=== PATIENT | male | born 2000 | race American Indian/Alaskan Native ===

== ENCOUNTER 2024-10-28 12:30 | Inpatient (IN) | payer OTHER, SELFPAY ==
[2024-10-28 12:34] VITALS: BP 149/87; PULSE 105; RESP 18; TEMP 36.7; O2SAT 97; BMI 31.0
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
--- OUTSIDE RECORDS SUMMARY | 2024-10-28 12:46 | XMS_ITS | Continuity of Care Document ---
Author Organization [facility] Address [address] [address] [place] [address] Phone Care Team Providers Care Refining Engineer Name Role Phone Lottie Rojas DO Unavailable Unavailable Allergies, Adverse Reactions, Alerts Substance Reaction Status Criticality No Known Allergies Active No Inform ation Medications Medication Instructions Dosage Effective Dates (start - stop) Status Comments ketoconazole 2 % topical cream apply by topical route 2 times every day to the affected area(s) for 3 weeks - Active Procedures Procedure Date Offic/outpt Radha Mccarthy Mikhail S Admin Of Influenza Vaccine Flu Vir Vacc-split 3 Yr Preven Meds E m Estab Pt 5-11 Yrs Of Age Preven Meds E m Estab Pt 5-11 Yrs Of Age Routine Venipunct/finger/ N/C Labs Done Init Preven Meds E m New Advance Directives Directive Yes / No Effective Date File Name No Information Encounters Encounter Description Practice Location Reason(s) For Visit Diagnoses Date Provider Providers Copied on Encounter Offic/outpt E isaura Mccarthy Mod S [facility], [address] [address], [place], [place], [id number], tel:[phone] Lesion(s) (chief complaint) Yeast dermatitisBoil 0-201 9 Bob Tafoya. [address] [facility], [place], [place], [id number] , [place]. tel: [phone] [facility], [address] [address], [place], [place], [address], [place] tel:[phone] [facility] No Information 3200 9 Flora Hawkins. [address], [place], [place], [id number] , [place]. tel: [phone] Referring Provider: Ross Hines, [address], [place], [address] . tel:[phone] Preven Meds E m Estab Pt 5-11 Yrs Of Age [facility], [address] [address], [place], [place], [address], [place] tel:[phone] [facility] well child exam (chief complaint) No Information 9 Flora Hawkins. [address], [place], [place], [id number] , [place]. tel: [phone] Referring Provider: Ross Hines, [address], [place], [address] . tel:[phone] [facility], [address] [address], [place], [place], [id number], [place] tel:[phone] [facility] No Information 9 Ankur Jarrett. [address], [place], [place], [id number] , [place]. tel: [phone] Preven Meds E m Estab Pt 5-11 Yrs Of Age [facility], [address] [address], [place], [place], [id number], [place] tel:[phone] [facility] establish care (chief complaint) No Information 4-200 8 Flora Hawkins. [address], [place], [place], [id number] , [place]. tel: [phone] Referring Provider: Ross Hines, [address], [place], [address] . tel:[phone] [facility], [facility], [address] [address], [place], [place], [address], [place] tel:[phone] [facility] No Information 8 Carlos Posey. [address] [place], [place], [address] , [place]. tel:[phone] Referring Provider: Taty Gonzalez, [place], [address] . tel:[phone] Init Preven Meds E m [facility], [facility], [address] [address], [place], [place], [address], [place] tel:[phone] [facility] Pediatrics physical exam (chief complaint) No Information 8 Carlos Posey. [address] [place], [place], [id number] , [place]. tel:[phone] Referring Provider: Taty Gonzalez, [place], [address] . tel:[phone] Family History Family Member Type Diagnosis Age At Onset Father Problem (finding) Hepatitis C (treated) Immunizations Vaccine Date Status Comments polio, inactivated (IPV) administered Linda rce: New Immunization Record MMR administered Source: New Imm unization Record DTaP administered Source: New Imm unization Record hep A (ped/adol, 3 dose) administered Linda rce: New Immunization Record hep A (ped/adol, 3 dose) administered Linda rce: New Immunization Record polio, inactivated (IPV) administered Linda rce: New Immunization Record varicella administered Source: New Imm unization Record HIB - unspecified administered Note: Set procedure code where blank for historical non-specific HIB entry. ; Source: New Immunization Record DTaP administered Source: New Imm unization Record hep A (ped/adol, 3 dose) administered Linda rce: New Immunization Record pneumo (under 5) (PCV7) administered Sour ce: New Immunization Record MMR administered Source: New Imm unization Record HIB - unspecified administered Note: Set procedure code where blank for historical non-specific HIB entry. ; Source: New Immunization Record pneumo (under 5) (PCV7) administered Sour ce: New Immunization Record varicella administered Source: New Imm unization Record hep B (ped/adol, 3 dose) administered Linda rce: New Immunization Record DTaP administered Source: New Imm unization Record polio, inactivated (IPV) administered Linda rce: New Immunization Record HIB - unspecified administered Note: Set procedure code where blank for historical non-specific HIB entry. ; Source: New Immunization Record DTaP administered Source: New Imm unization Record pneumo (under 5) (PCV7) administered Sour ce: New Immunization Record hep B (ped/adol, 3 dose) administered Linda rce: New Immunization Record hep B (ped/adol, 3 dose) administered Linad rce: New Immunization Record Payers Payer name Insurance type Covered libertarian ID Authorsantosha ticynthia(s) [facility] [id number] Social History Type Description Quantity Date Captured Comments Alcohol Use Details Unknown Caffeine Use Details Unknown Tobacco Use Status Current non-smoker 19 Smoking Status Never smoker Non-Smoking Tobacco Use Details : No Details Available : No Details Available Sex Male Vital Signs Date / Time: Height Weight BMI Pulse Rate Blood Pressure Temperature Respiratory Rate Body Surface Area Head Circumference Head Circ. Percentile Wt./Ronal. Percentile BMI percentile Pulse Ox Inhaled Ox 6:00 PM 72.24 in 112.854 kg (248.80 lbs) 33.5 2 kg/m eter (2) 73 /min 127/79 mm[Hg] 98.30 F 16 /min 98 97 % 21 % Chief Complaint And Reason For Visit From encounter dated '12/01/2018 17:50'. Lesion(s) (chief complaint). Description: The symptoms began 1 day ago and generally lasts 1 Day. The symptoms are reported as being moderate. The symptoms occur constantly. The location is groin. Hestates the symptoms are acute and have worsened. Reason For Referral Reason For Referral No Information Plan Of Treatment Date Type Action Status Goal Influenza vaccine. Due on due Goal HPV (1st). Due on 9 due Goal PPV 23 due Goal Fluoride varnish application . Due on due Goal Depression screening. Due on due Goal HPV (1st). Due on 9 due Goal Tdap. Due on due Goal Td vaccine. Due on 19 due Goal H&P. Due on due Goal H&P. Due on due History Of Present Illness Encounter Date Complaint History Of Prese nt Illness Lesion(s) The symptoms beg an 1 day ago and generally lasts 1 Day. The symptoms are reported as being moderate. The symptoms occur constantly. The location is groin. He states the symptoms are acute and have worsened. Lesion(s) (comments) 18yo M c/o bump on the inside of the left thigh. Pt says he noticed it today. Pt says there is some pain associated. Pt says he cannot remember if the bump is red, but he believes so. tender no head Functional Status Date Functional Assessmen t No Information Instructions Date Instruction Additional Infor johanna 1- try over the coun ter Campho-Phenique once a day to the bump2- if the bump comes to a head come back and we can cesar it. Related to Boil Ketoconazole 1-2 jaquelin es a day for 3 weeks when you can try to keep area dry. Related to Yeast dermatitis Assessments Type Assessment Date assessment Yeast dermatitis assessment Boil Mental Status Date Cognitive Assessment Orientation - [place] ed to time, place, person, situation.Normal Orientation Patient Care Teams Name Effective Dates (start - stop) Status Members No Information
--- OUTSIDE RECORDS SUMMARY | 2024-10-28 12:46 | XMS_ITS | Clinical Summary ---
Author Organization [facility] Address [address] [place] [address] Care Team Providers Care Clam Treader Name Role Phone Pcp, No Unavailable Unavailable Allergies No known active allergies Medications No known medications Social History Tobacco Use Types Packs/Day Years Used Date Smoking Tobacco: Never Assessed Sex and Gender Information Value Date Recorded Sex Assigned at Not on file Legal Sex Male 1:34 AM EDT Gender Identity Not on file Sexual Orientation Not on file Last Filed Vital Signs Vital Sign Reading Time Taken Comments Blood Pressure 150/100 08/26/2023 10:55 AM EDT Pulse 85 08/26/2023 10:55 AM EDT Temperature 36.7 ??C (98.1 ??F) 08/26/2023 10:55 AM E DT Respiratory Rate 18 08/26/2023 10:55 AM EDT Oxygen Saturation 100% 08/26/2023 10:55 AM EDT Inhaled Oxygen Concentration 100% 08/26/2023 1 0:55 AM EDT Weight - - Height - - Body Mass Index - - Plan of Treatment Health Maintenance Due Date Last Done Comments Depression Screening 2011 HIV Screening with Documented Verbal Consent 2014 Hepatitis C Screening 2017 COVID-19 Vaccine ( season) 2024 04/10/2021 Influenza Vaccine (#1) 2024 05/27/2015 TDAP/TD Vaccine 18+ 11/09/2024 11/09/2014 Hepatitis B Vaccines Completed 05/17/2000, 1999, 1999 HPV Vaccines Completed 05/27/2015, 01/07/2015, 11/09/2014 Pneumococcal: Peds (0-5y) OR At-Risk Patient (6-49y) Aged Out No longer eligib le based on patient's age to complete this topic Insurance [employer] Care Teams Clam Treader Relationship Specialty Start Date End Date Pcp, No PCP - Generic [facility] PCP 08/26/23
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
[2024-10-28 12:54] LABS: MANUAL DIFF FLAG NO
[2024-10-28 12:56] LABS: Basophils Absolute Auto 0.1 X10*3/uL (0.0-0.2); Basophils Percent Auto 0.7 % (0-2); Eosinophils Absolute Auto 0.3 X10*3/uL (0.0-0.4); Eosinophils Percent Auto 2.1 % (0-4); Hemoglobin 15.4 g/dl (14.0-18.0); Imm Gran Abs Auto 0.16 X10*3/uL (0.00-0.03); Imm Gran Pct Auto 1.3 % (0.0-0.4); Lymphocytes Absolute Auto 1.8 X10*3/uL (1.2-4.9); Lymphocytes Percent Auto 15.2 % (20-40); Mean Corpuscular HGB Conc 34.2 g/dl (31.0-36.0); Mean Corpuscular Hemoglobin 29.2 pg (27.0-33.0); Mean Corpuscular Volume 85.4 fL (80.0-98.0); Mean Platelet Volume 11.6 fL (9.4-12.4); Monocytes Absolute Auto 0.7 X10*3/uL (0.1-1.2); Monocytes Percent Auto 6.2 % (2-11); Neutrophils Percent Auto 74.5 % (45-73); Platelet Count 191 X10*3/uL (160-400); Red Blood Count 5.27 X10*6/uL (4.60-5.80); Red Cell Distribution Width 12.9 % (11.0-16.0)
[2024-10-28 13:10] LABS: Acetaminophen LAB < 3 mcg/mL (<30); Alanine Aminotransferase 60 U/L (0-40); Albumin Level 4.7 g/dL (3.5-5.0); Alkaline Phosphatase 75 U/L (39-117); Anion Gap 14 (12-20); Aspartate Amino Transferase 31 U/L (5-37); Bilirubin Direct 0.1 mg/dL (0.0-0.5); Bilirubin Total 0.3 mg/dL (0.0-1.0); Blood Urea Nitrogen 11 mg/dL (9-16); Calcium 9.8 mg/dL (8.4-10.2); Carbon Dioxide 24 mmol/L (22-29); Chloride 108 mmol/L (96-108); Estimated Glomerular Filt Rate > 60; Ethanol < 10 mg/dL; Glucose Random 102 mg/dL (60-115); Potassium 4.4 mmol/L (3.3-5.1); Salicylate < 5.0 mg/dL (15-30); Sodium 142 mmol/L (135-145); Total Protein 7.8 g/dL (6.5-8.0)
[2024-10-28 13:24] LABS: Appearance Urine Clear; Color Urine Yellow; Glucose Urine UA Negative (Negative); Leukocyte Esterase Urine Negative (Negative); Nitrite Urine Negative (Negative); Urine Blood Negative (Negative); Urine Ketones Negative (Negative); Urine Protein Negative (Neg-Trace)
[2024-10-28 13:35] LABS: Amphetamine Screen Urine Not Detected (Not Detect); Barbiturates, Urine Not Detected (Not Detect); Benzodiazepines Screen Urine Not Detected (Not Detect); Buprenorphine Scr Not Detected (Not Detect); Cannabinoid Screen Urine Not Detected (Not Detect); Cocaine Screen Urine Not Detected (Not Detect); Fentanyl, urine Not Detected (Not Detect); Methadone Screen, Urine Not Detected (Not Detect); Opiate Screen Urine Not Detected (Not Detect); Oxycodone Screen Urine Not Detected (Not Detect); Phencyclidine Screen Urine Not Detected (Not Detect)
[2024-10-28 14:05] VITALS: RESP 16
--- NOTE | 2024-10-28 17:45 | PC.NURSE ---
Patient on phone calling his manuela Levi agitated that disposition at this time is S[facility]. patient is able to self-redirect without issue
--- NOTE | 2024-10-28 18:05 | PC.NURSE ---
Patient reports that he receives his medications at [facility] in [place], [place]. Pharmacy opens at 0900 on 10/29. Unable to fully verify medications at this time however, patient was able to verify medications that he is taking, additional verification was obtained by the medical team at [facility] where the patient is currently under medical obs
[2024-10-28] MEDS: Nicotine 21 MG PATCH.TD24 TRANSDERMA (18:21)
[2024-10-28] MEDS: Nicotine Polacrilex 2 MG GUM BUCCAL (20:00)
[2024-10-28] MEDS: Naltrexone HCl 50 MG TABLET PO (20:00)
[2024-10-28] MEDS: hydrOXYzine HCL 50 MG TABLET PO (20:00)
[2024-10-28] MEDS: Magnesium Oxide 400 MG TABLET 200 MG PO (20:00)
[2024-10-28] MEDS: busPIRone HCl 5 MG TABLET 15 MG PO (20:00)
[2024-10-28] MEDS: traZODone HCL 100 MG TABLET PO (20:01)
--- NOTE | 2024-10-28 20:12 | PC.NURSE ---
Mark Moser (Medical Personnel at [facility]) called for update, pt agreeable to giving information to him. [phone]
[2024-10-28 20:50] VITALS: BP 129/74; PULSE 85; RESP 16; TEMP 36.6; O2SAT 98
--- NOTE | 2024-10-28 20:50 | PC.NURSE ---
Patient took pm medications, now resting in no apparent distress at this time, respirations even and unlabored
--- NOTE | 2024-10-29 05:56 | PC.NURSE ---
Patient slept through the night, no distress observed/reported, meds and meals compliant, disposition per care team is section-12 inpatient bed search, 15 minutes safety check, no behavior and safety concerns, will continue to monitor
[2024-10-29 06:04] VITALS: BP 100/52; PULSE 62; RESP 18; TEMP 36.4; O2SAT 96
--- NOTE | 2024-10-29 09:24 | PHA.MEDREC ---
Addendum entered by Maddy Winslow RPh 10/29/24 18:29: Reviewed by [facility] Original Note: Pharmacy Consult ? Medication Reconciliation Pharmacy has completed the medication reconciliation Reviewed med rec done by nursing (Izzy)..
--- NOTE | 2024-10-29 09:34 | PC.NURSE ---
Assumed care of patient at 0845, patient appears to be sleeping at this time, respirations even and unlabored, no apparent distress noted. Continue plan of care for IPLOC
[2024-10-29] MEDS: Thiamine HCL 100 MG TABLET PO (09:50)
[2024-10-29] MEDS: Folic Acid 1 MG TABLET PO (09:50)
[2024-10-29] MEDS: Naltrexone HCl 50 MG TABLET PO ×2 (09:51→21:40)
[2024-10-29] MEDS: busPIRone HCl 5 MG TABLET 15 MG PO ×2 (09:51→21:38)
[2024-10-29] MEDS: Nicotine Polacrilex 2 MG GUM BUCCAL ×3 (09:53→21:41)
--- NOTE | 2024-10-29 09:54 | PC.NURSE ---
pharmacy yue texted for Abilify at [phone]
[2024-10-29] MEDS: ARIPiprazole 20 MG TABLET PO (10:06)
[2024-10-29] MEDS: buPROPion HCl XL 150 MG TAB.ER.24H PO (11:44)
[2024-10-29] MEDS: Nicotine 21 MG PATCH.TD24 TRANSDERMA (16:59)
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
[2024-10-29 20:42] VITALS: BP 136/69; PULSE 81; RESP 18; TEMP 36.7; O2SAT 95
[2024-10-29] MEDS: hydrOXYzine HCL 50 MG TABLET PO (21:38)
[2024-10-29] MEDS: Magnesium Oxide 400 MG TABLET 200 MG PO (21:39)
[2024-10-29] MEDS: traZODone HCL 100 MG TABLET PO (21:40)
[2024-10-29 22:40] VITALS: RESP 14
[2024-10-30 06:20] VITALS: BP 114/63; PULSE 57; RESP 17; TEMP 36.8; O2SAT 98
--- NOTE | 2024-10-30 08:24 | ECG_ITS ---
Test Reason : CHECK CARDIAC STATUS Blood Pressure : */* mmHG Vent. Rate : 84 BPM Atrial Rate : 84 BPM P-R Int : 144 ms QRS Dur : 92 ms QT Int : 376 ms P-R-T Axes : 51 53 12 degrees QTcB Int : 444 ms Normal sinus rhythm Normal ECG No previous ECGs available Referred By: Generic ED Physician Electronically Signed By: Ernie Young
--- NOTE | 2024-10-30 08:46 | PC.NURSE ---
pt is calm and cooperative, he is interacting approprialty with staff and is speaking in clear and even tones. bed search is ongoing, pt os aware and agreeable to plan of care.
[2024-10-30] MEDS: busPIRone HCl 5 MG TABLET 15 MG PO ×2 (09:19→22:04)
[2024-10-30] MEDS: Thiamine HCL 100 MG TABLET PO (09:19)
[2024-10-30] MEDS: Naltrexone HCl 50 MG TABLET PO ×2 (09:19→22:04)
[2024-10-30] MEDS: buPROPion HCl XL 150 MG TAB.ER.24H PO (09:19)
[2024-10-30] MEDS: Folic Acid 1 MG TABLET PO (09:19)
--- NOTE | 2024-10-30 10:51 | MHC.EDTECH ---
Patient presents to nurses desk to ask about discharging, this tech stated I would check into the status. This tech spoke with care team via [place] and relayed to patient that patient is unable to discharge, they are on a section 12. Patient became upset, raising voice, stating they are not staying any longer, and requesting to speak with care team. Care team contacted and patients requests given via [place] text.
[2024-10-30 11:51] VITALS: BP 122/68; PULSE 68; RESP 16; TEMP 36.9; O2SAT 97
[2024-10-30] MEDS: Nicotine 21 MG PATCH.TD24 TRANSDERMA (19:31)
--- NOTE | 2024-10-30 21:07 | PC.NURSE ---
patient appears to remain at rest at present, respirations even and unlabored patient requested nicotine patch soon after arrival patient appears in no distress presently. client spoke ti sister on phone [id number] disposition.
[2024-10-30] MEDS: Magnesium Oxide 400 MG TABLET 200 MG PO (22:04)
[2024-10-30] MEDS: traZODone HCL 100 MG TABLET PO (22:05)
[2024-10-31 06:24] VITALS: BP 132/60; PULSE 61; RESP 14; TEMP 36.2; O2SAT 98
--- NOTE | 2024-10-31 07:57 | PC.NURSE ---
Pt Sister Cady called for update on pt. This RN explained to pt sister, pt is sleeping and requires verbal consent to give information over the phone. Will obtain when patient awake. Cady [phone]
[2024-10-31] MEDS: Folic Acid 1 MG TABLET PO (09:18)
[2024-10-31] MEDS: Thiamine HCL 100 MG TABLET PO (09:18)
[2024-10-31] MEDS: buPROPion HCl XL 150 MG TAB.ER.24H PO (09:18)
[2024-10-31] MEDS: busPIRone HCl 5 MG TABLET 15 MG PO ×2 (09:19→20:19)
[2024-10-31] MEDS: Naltrexone HCl 50 MG TABLET PO ×2 (09:19→20:19)
[2024-10-31] MEDS: ARIPiprazole 20 MG TABLET PO (11:35)
[2024-10-31 15:37] VITALS: BP 111/52; PULSE 83; RESP 12; TEMP 36.3; O2SAT 99
[2024-10-31 16:15] VITALS: BP 133/80; PULSE 97; TEMP 36; O2SAT 96
[2024-10-31] MEDS: Nicotine 21 MG PATCH.TD24 TRANSDERMA (17:16)
[2024-10-31 17:30] VITALS: BMI 44.7
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
[2024-10-31 20:00] VITALS: BP 129/60; PULSE 76; TEMP 36.6; O2SAT 94
[2024-10-31] MEDS: Magnesium Oxide 400 MG TABLET 200 MG PO (20:19)
[2024-10-31] MEDS: traZODone HCL 100 MG TABLET PO (20:19)
[2024-10-31] MEDS: Acetaminophen 325 MG TABLET 650 MG PO (21:38)
[2024-11-01 00:10] VITALS: BP 115/55; PULSE 58; RESP 16; TEMP 36.5; O2SAT 94
[2024-11-01 07:54] VITALS: BP 130/62; PULSE 63; TEMP 36.4; O2SAT 96
[2024-11-01] MEDS: busPIRone HCl 5 MG TABLET 15 MG PO ×2 (08:58→22:56)
[2024-11-01] MEDS: Thiamine HCL 100 MG TABLET PO (08:59)
[2024-11-01] MEDS: ARIPiprazole 20 MG TABLET PO (08:59)
[2024-11-01] MEDS: Folic Acid 1 MG TABLET PO (08:59)
[2024-11-01] MEDS: Naltrexone HCl 50 MG TABLET PO ×2 (08:59→22:58)
[2024-11-01] MEDS: Multivitamin TABLET 1 TAB PO (08:59)
[2024-11-01] MEDS: buPROPion HCl XL 150 MG TAB.ER.24H PO (08:59)
[2024-11-01] MEDS: Nicotine Polacrilex 2 MG GUM 4 MG BUCCAL (08:59)
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
[2024-11-01] MEDS: Acetaminophen 325 MG TABLET 650 MG PO (11:06)
[2024-11-01] MEDS: Nicotine 21 MG PATCH.TD24 TRANSDERMA (11:06)
[2024-11-01 12:34] VITALS: BP 119/60; PULSE 75; TEMP 36.5
[2024-11-01] MEDS: LORazepam 1 MG TABLET PO (12:45)
[2024-11-01] MEDS: Sertraline HCL 100 MG TABLET PO (12:45)
[2024-11-01 19:36] VITALS: BP 128/66; PULSE 87; RESP 16; TEMP 36.4; O2SAT 97
[2024-11-01] MEDS: Magnesium Oxide 400 MG TABLET 200 MG PO (22:55)
[2024-11-01] MEDS: traZODone HCL 100 MG TABLET PO (22:58)
[2024-11-02 07:00] VITALS: BMI 44.8
[2024-11-02 08:00] VITALS: BP 167/77; PULSE 65; TEMP 37.1
[2024-11-02 08:35] LABS: Cholesterol 256 mg/dL (<200); HDL Cholesterol 49 mg/dL (>40); LDL Cholesterol Calculated 177 mg/dL (<100); Magnesium 2.3 mg/dL (1.6-2.6); Triglycerides 154 mg/dL (<150)
[2024-11-02] MEDS: Sertraline HCL 100 MG TABLET PO (08:43)
[2024-11-02] MEDS: Naltrexone HCl 50 MG TABLET PO ×2 (08:43→21:28)
[2024-11-02] MEDS: ARIPiprazole 20 MG TABLET PO (08:43)
[2024-11-02] MEDS: Folic Acid 1 MG TABLET PO (08:43)
[2024-11-02] MEDS: Thiamine HCL 100 MG TABLET PO (08:43)
[2024-11-02 08:44] LABS: Estimated Average Glucose 108 mg/dL; Hemoglobin A1C 143.4882 umol/L; Hemoglobin A1c % 5.4 % (<6.0); Total Hemoglobin (HGBA1C) 4036.8778 umol/L
[2024-11-02] MEDS: Nicotine 21 MG PATCH.TD24 TRANSDERMA (08:44)
[2024-11-02] MEDS: LORazepam 1 MG TABLET PO (08:44)
[2024-11-02] MEDS: Multivitamin TABLET 1 TAB PO (08:44)
[2024-11-02] MEDS: busPIRone HCl 5 MG TABLET 15 MG PO ×2 (08:44→21:27)
[2024-11-02] MEDS: buPROPion HCl XL 150 MG TAB.ER.24H PO (08:44)
[2024-11-02 08:54] LABS: Free T4 (Free Thyroxine) 0.85 ng/dL (0.71-1.85); Thyroid Stimulating Hormone 1.43 uIU/mL (0.32-4.0)
[2024-11-02 09:05] LABS: Folate 13.3 ng/mL (> or = 4.0); Vitamin B12 1443 pg/mL (200-900)
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
[2024-11-02 12:00] VITALS: BP 120/65; PULSE 78; TEMP 36.6; O2SAT 96
[2024-11-02] MEDS: Acetaminophen 325 MG TABLET 650 MG PO (18:37)
[2024-11-02 19:00] VITALS: BP 126/80; PULSE 74; TEMP 36.8; O2SAT 96
[2024-11-02 20:00] VITALS: BP 145/79; PULSE 94; RESP 16; TEMP 36.7; O2SAT 95
[2024-11-02] MEDS: traZODone HCL 100 MG TABLET PO (21:28)
[2024-11-02] MEDS: Magnesium Oxide 400 MG TABLET 200 MG PO (21:28)
[2024-11-03 08:28] VITALS: BP 133/62; PULSE 59; TEMP 36.6; O2SAT 97
[2024-11-03] MEDS: Nicotine 21 MG PATCH.TD24 TRANSDERMA (08:39)
[2024-11-03] MEDS: ARIPiprazole 20 MG TABLET PO (08:39)
[2024-11-03] MEDS: Sertraline HCL 100 MG TABLET PO (08:40)
[2024-11-03] MEDS: Folic Acid 1 MG TABLET PO (08:40)
[2024-11-03] MEDS: busPIRone HCl 5 MG TABLET 15 MG PO (08:40)
[2024-11-03] MEDS: Multivitamin TABLET 1 TAB PO (08:40)
[2024-11-03] MEDS: buPROPion HCl XL 150 MG TAB.ER.24H PO (08:40)
[2024-11-03] MEDS: Thiamine HCL 100 MG TABLET PO (08:40)
[2024-11-03] MEDS: Naltrexone HCl 50 MG TABLET PO (08:40)
--- NOTE | 2024-11-03 09:52 | P.DS_ITS ---
DS: Providers Provider Date of Service: 11/03/24 Date of admission: 10/31/24 14:17 Date of discharge: 11/03/24 Primary care physician: Ceasar Physician Admitting clinician: Dexter Marie Attending physician on admission: Siddharth Taylor Attending physician on discharge: Siddharth Taylor Discharging clinician: Radha Kong DS: Diagnosis Discharge Diagnosis (1) MDD (major depressive disorder), recurrent episode: Status: Acute (2) EDILSON (generalized anxiety disorder): Status: Acute (3) Suicidal ideation: Status: Acute DS: Medications Discharge Medications Home Medications: Previous Rx's ?Medication ?Instructions ?Recorded acetaminophen 325 mg tablet 650 mg (2 x 325 mg) PO Q6H PRN 11/02/24 Headache/Pain, Scale 1-10 #0 tabs aripiprazole 20 mg tablet (Abilify) 20 mg PO DAILY #30 tabs 11/02/24 bupropion HCl 150 mg 24 hr tablet, 150 mg PO DAILY #30 tabs 11/02/24 extended release buspirone 15 mg tablet 15 mg PO BID 60 days #120 tabs 11/02/24 folic acid 1 mg tablet 1 mg PO DAILY #30 tabs 11/02/24 hydroxyzine HCl 50 mg tablet 50 mg PO DAILY PRN Anxiety #30 tabs 11/02/24 magnesium oxide 400 mg (241.3 mg 200 mg (1/2 x 400 mg (241.3 mg 11/02/24 magnesium) tablet magnesium)) PO BEDTIME #30 tabs multivitamin (Daily-Stef tablet) 1 tab PO DAILY #30 tabs 11/02/24 naltrexone 50 mg tablet 50 mg PO BID #60 tabs 11/02/24 nicotine (polacrilex) 2 mg gum 4 mg buccal Q2H PRN Nicotine 11/02/24 Cravings #100 ea nicotine 21 mg/24 hr daily 21 mg transdermal DAILY #30 ea 11/02/24 transdermal patch sertraline 100 mg tablet 100 mg PO DAILY #30 tabs 11/02/24 thiamine mononitrate (vit B1) 100 100 mg PO DAILY #30 tabs 11/02/24 mg tablet trazodone 100 mg tablet 100 mg PO BEDTIME #30 tabs 11/02/24 Mental Status Exam Mental Status Exam Narrative: Appearance: Casually dressed in hospital gown Behavior: Calm and cooperative throughout the interview. Eye contact is appropriate, and there are no signs of psychomotor agitation or retardation Speech: Normal volume and prosody Thought process logical and goal-directed Thought content: Future oriented No self-harming thoughts Mood: good Affect: Constricted, mood-congruent SI:denies HI:denies VH/AH:none Delusions: None Insight/judgment: Fair insight and judgment Memory/cog: Alert, oriented x 4. grossly intact to conversational testing Data Data Completed and Pending Completed studies during hospitalization [Text1]: 10/28/24 10/28/24 11/02/24 12:50 13:12 07:50 WBC 12.0 H RBC 5.27 Hgb 15.4 Hct 45.0 MCV 85.4 MCH 29.2 MCHC 34.2 RDW 12.9 Plt Count 191 MPV 11.6 Immature Gran % (Auto) 1.3 H Neut % (Auto) 74.5 H Lymph % (Auto) 15.2 L Bath % (Auto) 6.2 Eos % (Auto) 2.1 Baso % (Auto) 0.7 Lymph # (Auto) 1.8 Bath # (Auto) 0.7 Eos # (Auto) 0.3 Baso # (Auto) 0.1 Abs Immat Gran (auto) 0.16 H Absolute Neuts (auto) 9.0 H Absolute Nucleated RBC 0.000 Nucleated RBC % (auto) 0.0 Sodium 142 Potassium 4.4 Chloride 108 Carbon Dioxide 24 Anion Gap 14 BUN 11 Creatinine 0.90 Estim Creat Clear Calc 134.0 Estimated GFR > 60 Random Glucose 102 Estimat Average Glucose 108 Hemoglobin A1c % 5.4 Calcium 9.8 Magnesium 2.3 Total Bilirubin 0.3 Direct Bilirubin 0.1 AST 31 ALT 60 H Alkaline Phosphatase 75 Total Protein 7.8 Albumin 4.7 Triglycerides 154 H Cholesterol 256 H LDL Cholesterol, Calc 177 H HDL Cholesterol 49 Vitamin B12 1443 H Folate 13.3 TSH 1.43 Free T4 0.85 Urine Color Yellow Urine Appearance Clear Urine pH 7.0 Ur Specific [place] 1.020 Urine Protein Negative Urine Glucose (UA) Negative Urine Ketones Negative Urine Blood Negative Urine Nitrite Negative Ur Leukocyte Esterase Negative Salicylates < 5.0 L Urine Opiates Screen Not Detected Ur Buprenorphine Scrn Not Detected Ur Oxycodone Screen Not Detected Urine Methadone Screen Not Detected Urine Fentanyl Screen Not Detected Acetaminophen < 3 Ur Barbiturates Screen Not Detected Ur Phencyclidine Scrn Not Detected Ur Amphetamines Screen Not Detected U Benzodiazepines Scrn Not Detected Urine Cocaine Screen Not Detected U Marijuana (THC) Screen Not Detected Ethyl Alcohol < 10 DS: Summary Hospital Course Hospital Course: Admission to adult psychiatry for exacerbation of depression with SI, anxiety. Pt is a [employer] and has asked to resign from his position due to job stress. Medications were evaluated and adjusted. Pt was encouraged to utilize the milieu to strengthen coping skills. Pt will return to his home in [place], accompanied by the and continue out pt care in his home area. He has supportive family and girlfriend. 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 Pt denies SI/HI/AH/VH and there are no sx of acute psychosis or chelly. Status at Discharge Functional status at discharge: independent ambulation Overall status at discharge: patient is progressing back to baseline Time Spent with Patient Time attestation: Total time managing care of this patient today ____ minutes. Time spent: Less than 30 minutes Discharge Plan Discharge Anticipated Discharge Date/Time: 11/03/24 12:35 Patient Disposition: Home, Self-Care Discharge Diagnosis: MDD, EDILSON Referrals: [facility]- Therapy and Psychiatry [Other] - 1 Day ([facility] will call you today (11/03) to schedule your appointments with you. If you have not heard from them by 3pm please call the provided telephone number to speak with the firefighting equipment specialist ) Physician,None [Primary Care Provider] - 1 Week Discharge Medications: New acetaminophen 325 mg Tablet 650 mg PO Q6H PRN (Reason: Headache/Pain, Scale 1-10) Qty: 0 0RF nicotine (polacrilex) 2 mg Gum 4 mg buccal Q2H PRN (Reason: Nicotine Cravings) Qty: 100 0RF nicotine 21 mg/24 hr Patch 24 Hour 21 mg transdermal DAILY Qty: 30 0RF naltrexone 50 mg Tablet 50 mg PO BID Qty: 60 0RF sertraline 100 mg Tablet 100 mg PO DAILY Qty: 30 0RF hydroxyzine HCl 50 mg Tablet 50 mg PO DAILY PRN (Reason: Anxiety) Qty: 30 0RF aripiprazole [Abilify] 20 mg Tablet 20 mg PO DAILY Qty: 30 0RF bupropion HCl 150 mg Tablet Extended Release 24 Hr 150 mg PO DAILY Qty: 30 0RF multivitamin [Daily-Stef] Tablet 1 tab PO DAILY Qty: 30 0RF magnesium oxide 400 mg (241.3 mg magnesium) Tablet 200 mg PO BEDTIME Qty: 30 0RF trazodone 100 mg Tablet 100 mg PO BEDTIME Qty: 30 0RF folic acid 1 mg Tablet 1 mg PO DAILY Qty: 30 0RF thiamine mononitrate (vit B1) 100 mg Tablet 100 mg PO DAILY Qty: 30 0RF buspirone 15 mg tablet 15 mg PO BID 60 Days Qty: 120 0RF Discontinued folic acid 1 mg tablet 1 mg PO DAILY naltrexone 50 mg tablet 50 mg PO BID thiamine HCl (vitamin B1) [Vitamin B-1] 100 mg tablet 100 mg PO DAILY hydroxyzine pamoate 50 mg capsule 50 mg PO DAILY PRN (Reason: Anxiety) bupropion HCl [Wellbutrin SR] 100 mg tablet sustained-release 12 hr 100 mg PO DAILY trazodone 100 mg tablet 100 mg PO BEDTIME magnesium 250 mg tablet 250 mg PO BEDTIME buspirone 15 mg tablet 15 mg PO BID aripiprazole [Abilify] 20 mg tablet 20 mg PO DAILY Discharge Orders: Discharge Order (Routine); Ordered 11/03/24 Ordered By: Dexter Marie Diet: Regular diet Activity on Discharge: As tolerated Stand Alone Forms: Patient Portal Discharge page, Community Support Print Language: Tamazight Care Plan Goals: Mood and behavioral stabilization. Abstinence from substance use Health Concerns: Mood and behavioral stabilization. Abstinence from substance use Plan of Treatment: Attend scheduled appointments, take medications as directed Assessment: Scheduled discharge Discharge Date/Time: 11/03/24 10:05
== END 2024-11-03 10:05 | disposition home or self-care (01) | DRG 885 ==
LOC: HO.ED 10-31 14:41 → HO.PM5 10-31 15:25
PROVIDERS: Nurse Practitioner Family; Admitting Provider Clinical Nurse Specialist Psychiatric/Mental Health, Adult; Emergency Provider Emergency Medicine Emergency Medical Services; Visit Provider Clinical Nurse Specialist Psychiatric/Mental Health, Adult
DX: F33.9 Major depressive disorder, recurrent, unspecified (principal); R45.851 Suicidal ideations; F41.1 Generalized anxiety disorder; F17.210 Nicotine dependence, cigarettes, uncomplicated; Z71.6 Tobacco abuse counseling; Z79.899 Other long term (current) drug therapy
CPT/HCPCS: 36415; 80048; 80061; 80076; 80143; 80179; 80307; 81003; 82607; 82746; 83036; 83735; 84439; 84443; 85025; 93005; 99285; S9485

== ENCOUNTER → 2024-10-30 08:24 | Outpatient (BNV) | payer OTHER, SELFPAY | PROVIDERS: Emergency Provider Emergency Medicine Emergency Medical Services; Visit Provider Internal Medicine Cardiovascular Disease | DX: Z13.6 Encounter for screening for cardiovascular disorders (principal) | CPT/HCPCS: 93010 ==

== ENCOUNTER → 2024-10-31 14:17 | Outpatient (BNV) | payer OTHER, SELFPAY | PROVIDERS: Admitting Provider Clinical Nurse Specialist Psychiatric/Mental Health, Adult; Emergency Provider Emergency Medicine Emergency Medical Services; Visit Provider Nurse Practitioner Family | DX: F33.2 Major depressive disorder, recurrent severe without psychotic features (principal); F41.1 Generalized anxiety disorder; R45.851 Suicidal ideations | CPT/HCPCS: 90792; 99232; 99238 ==